=== PATIENT | male | born 1995 | race Caucasian/White ===

== ENCOUNTER 2017-09-17 20:07 | Emergency (ER) | payer OTHER ==
[~2017-09-17] VITALS: Ht 175.3 cm; Wt 104.3 kg
[~2017-09-17 20:07] MED LIST: NAPROSYN500 MG PO
[2017-09-17 20:16] VITALS: BP 140/81
[2017-09-17] MEDS ORDERED: DOXYCYCLINE 10100 MG PO (20:39)
== END 2017-09-17 20:51 | disposition home or self-care (01) ==
LOC: ER 20:07
DX: L03.116 Cellulitis of left lower limb (principal)

== ENCOUNTER 2019-06-27 21:27 | Emergency (ER) | payer OTHER ==
[~2019-06-27] VITALS: Ht 175.3 cm; Wt 95.3 kg
[~2019-06-27 21:27] MED LIST changes: +DOXYCYCLINE 10100 MG PO
[2019-06-27 21:57] LABS: ABSOLUTE NEUTROPHILS 9.2 thou/uL (1.4-8.2); BASOPHILS 0.3 % (0.0-2.0); HEMATOCRIT 52.9 % (42.0-52.0); LYMPHOCYTES 8.7 % (24.0-44.0); MCH 32.3 pg (26.0-34.0); MCV 95.2 fL (80.0-100.0); MONOCYTES 5.6 % (1.0-8.0); PLATELET COUNT 218 thou/uL (150-400); POLYS 83.4 % (36.0-66.0); RBC 5.56 mil/uL (4.50-6.00); RDW 13.2 % (10.5-14.5); WBC 11.1 thou/uL (4.0-11.0)
[2019-06-27 22:00] LABS: ANION GAP 9 mmol/L (7-16); BUN 14 mg/dL (7-18); CALCIUM 9.1 mg/dL (8.5-10.1); CHLORIDE 99 mmol/L (98-107); CO2 30 mmol/L (21-32); CREATININE 1.4 mg/dL (0.7-1.3); GLUCOSE 98 mg/dL (74-106); POTASSIUM 3.8 mmol/L (3.5-5.1); SODIUM 138 mmol/L (136-145)
[2019-06-27 22:09] LABS: TROPONIN-I <0.06 ng/mL (<0.06)
[2019-06-28] MEDS ORDERED: AZITHROMYCIN250 MG PO (00:25)
[2019-06-28] MEDS ORDERED: PROMETH-CODEIN 65 ML PO (00:25)
[2019-06-28] MEDS ORDERED: IBUPROFEN 600600 M1 PO (00:25)
[2019-06-28 00:40] VITALS: BP 110/72
--- NOTE | 2019-06-29 12:34 | EKG ---
[facility] [address] ELECTROCARDIOGRAM REPORT Name: ETELVINA MEYER Room #: DEP [facility]#: [id number] Admission: 06/27/19 Attend Phys: Discharge: 06/28/19 Date of : [birth year] Report #: [id number] THIS REPORT FOR: cc: NO FAMILY PHYSICIAN or PCP NO FAMILY PHYSICIAN or PCP Keon Bazan MD [facility] THIS REPORT FOR: //name// [facility] ED Test Date: 2019-06-27 Test Time: 21:37:12 Pat Name: ETELVINA MEYER Department: Room: Gender: [facility] Manager: STEVE : 1995 Requested By: Bryan Sheppard Order Number: [id number] MD: Keon Bazan Measurements Intervals [place] Rate: 124 P: 68 AL: 138 QRS: 60 QRSD: 84 T: 10 QT: 306 QTc: 440 Interpretive Statements Sinus tachycardia RSR' in V1 or V2, right VCD Borderline T abnormalities, anterior leads No previous ECG available for comparison Electronically Signed On 06-28-2019 9:16:04 FINISH MIXER by Keon Bazan [email or web address] <ELECTRONICALLY SIGNED> By: Keon Bazan MD, FAC 06/28/19 0916 36 36 Keon Bazan MD, [facility] /EPI
== END 2019-06-28 00:40 | disposition home or self-care (01) ==
LOC: ER 21:27
PROVIDERS: Emergency Medicine
DX: J11.08 Influenza due to unidentified influenza virus with specified pneumonia (principal); J18.0 Bronchopneumonia, unspecified organism